=== PATIENT | male | born 1990 | race Caucasian/White ===

== ENCOUNTER 2016-07-28 03:18 | Emergency (ER) | payer OTHER ==
[~2016-07-28] VITALS: Ht 172.7 cm; Wt 64.4 kg
--- NOTE | ~2016-07-28 | EKG ---
[place] [address] [facility] [place] [address] ELECTROCARDIOGRAM REPORT Name: SOLO GUILLEN [id number] Admission: 07/28/16 Attend Phys: Discharge: 07/28/16 Date of : [birth year] Report #: [id number] THIS REPORT FOR: //name// [facility] ED Test Date: 2016-07-28 Test Time: 04:03:51 Pat Name: SOLO GUILLEN Department: Room: Gender: [employer]: CAROLYNE : 1990 Requested By: Matt Christy Order Number: [id number] MD: Yan Santa Measurements Intervals [place] Rate: 108 P: 71 GA: 157 QRS: 62 QRSD: 114 T: 28 QT: 332 QTc: 445 Interpretive Statements Sinus tachycardia Incomplete right bundle branch block No previous ECG available for comparison Electronically Signed On 07-28-2016 7:53:24 CDT by Yan Santa [email or web address] <ELECTRONICALLY SIGNED> By: Yan Santa MD, [facility] 07/28/16 [id number] Yan Santa MD, FACC /EPI
[~2016-07-28 03:18] MED LIST: ADDERALL 20 MG20 MG PO; APAP500 PO
[2016-07-28] MEDS ORDERED: ADDERALL 10 MG10 MG PO (03:23)
[2016-07-28 03:42] LABS: URINE BILIRUBIN NEGATIVE (Negative); URINE BLOOD NEGATIVE (Negative); URINE COLOR YELLOW; URINE GLUCOSE-RANDOM* NEGATIVE (Negative); URINE KETONES NEGATIVE (Negative); URINE LEUKOCYTES-REFLEX NEGATIVE (Negative); URINE PROTEIN (DIPSTICK) NEGATIVE (Negative); URINE SPECIFIC GRAVITY <= 1.005 (1.003-1.035); URINE UROBILINOGEN 0.2 E.U./dl (0.2-1.0)
[2016-07-28 03:43] LABS: ABSOLUTE NEUTROPHILS 6.1 thou/uL (1.4-8.2); BASOPHILS 0.9 % (0.0-2.0); EOSINOPHILS 1.8 % (0.0-3.0); HEMATOCRIT 48.4 % (42.0-52.0); LYMPHOCYTES 22.8 % (24.0-44.0); MCH 31.4 pg (26.0-34.0); MCHC 35.2 g/dL (28.0-37.0); MCV 89.2 fL (80.0-100.0); MONOCYTES 9.6 % (1.0-8.0); PLATELET COUNT 313 thou/uL (150-400); POLYS 64.9 % (36.0-66.0); RBC 5.42 mil/uL (4.50-6.00); RDW 12.7 % (10.5-14.5); WBC 9.3 thou/uL (4.0-11.0)
[2016-07-28 03:45] LABS: MANUAL DIFF NO
[2016-07-28 03:52] LABS: CALCIUM 9.9 mg/dL (8.5-10.1); CREATININE 0.9 mg/dL (0.6-1.3); POTASSIUM 3.6 mmol/L (3.5-5.1)
[2016-07-28 03:56] LABS: ALBUMIN 4.8 g/dL (3.4-5.0); TOTAL BILIRUBIN 0.9 mg/dL (<0.1-1.0); TOTAL PROTEIN 8.2 g/dL (6.4-8.2)
[2016-07-28] MEDS ORDERED: ZOFRAN ODT4 MG PO (06:14)
[2016-07-28] MEDS ORDERED: MIRALAX17 G1 PO (06:14)
== END 2016-07-28 06:29 | disposition home or self-care (01) ==
LOC: ER 03:18
PROVIDERS: Emergency Medicine
DX: R10.32 Left lower quadrant pain (principal); R11.2 Nausea with vomiting, unspecified; F90.9 Attention-deficit hyperactivity disorder, unspecified type; F10.99 Alcohol use, unspecified with unspecified alcohol-induced disorder

== ENCOUNTER 2019-02-09 09:51 | Emergency (ER) | payer OTHER ==
[~2019-02-09] VITALS: Ht 175.3 cm; Wt 72.6 kg
[~2019-02-09 09:51] MED LIST changes: +ADDERALL 10 MG10 MG PO; +MIRALAX17 G1 PO; +ZOFRAN ODT4 MG PO
[2019-02-09] MEDS ORDERED: CLONAZEPAM 0.50.5 M1 PO (09:55)
[2019-02-09 10:10] LABS: URINE BILIRUBIN NEGATIVE (Negative); URINE BLOOD 3+ (Negative); URINE CLARITY CLEAR; URINE COLOR YELLOW; URINE GLUCOSE-RANDOM* NEGATIVE (Negative); URINE KETONES NEGATIVE (Negative); URINE LEUKOCYTES NEGATIVE (Negative); URINE NITRITE NEGATIVE (Negative); URINE PROTEIN (DIPSTICK) TRACE (Negative); URINE SPECIFIC GRAVITY 1.015 (1.005-1.035); URINE UROBILINOGEN 0.2 E.U./dl (0.2-1.0)
[2019-02-09 10:32] LABS: ABSOLUTE NEUTROPHILS 8.5 thou/uL (1.4-8.2); BASOPHILS 0.6 % (0.0-2.0); EOSINOPHILS 1.5 % (0.0-3.0); HEMATOCRIT 46.1 % (42.0-52.0); HEMOGLOBIN 15.7 gm/dL (14.0-18.0); LYMPHOCYTES 10.5 % (24.0-44.0); MCH 31.4 pg (26.0-34.0); MCV 92.3 fL (80.0-100.0); MONOCYTES 6.6 % (1.0-8.0); POLYS 80.8 % (36.0-66.0); RDW 13.4 % (10.5-14.5); WBC 10.5 thou/uL (4.0-11.0)
[2019-02-09 10:37] LABS: BACTERIA None Seen /HPF (None Seen); CRYSTALS None Seen /LPF (None Seen); HYALINE CASTS 0-3 Few /LPF (None Seen); MUCUS 4-6 Moderate strn/LPF (None Seen); SQUAMOUS 0-3 Few /LPF (0-3); URINE RBC >20 Many /HPF (0-2); URINE WBC 0-5 Rare /HPF (0-5)
[2019-02-09 10:41] LABS: CALCIUM 9.7 mg/dL (8.5-10.1)
[2019-02-09 10:48] LABS: ALBUMIN 4.4 g/dL (3.4-5.0); TOTAL PROTEIN 7.8 g/dL (6.4-8.2)
[2019-02-09 11:01] LABS: PLATELET COUNT 282 thou/uL (150-400)
[2019-02-09] MEDS ORDERED: IBUPROFEN 600600 M1 PO (12:02)
[2019-02-09] MEDS ORDERED: NORCO 5-325 TA1 EAC1 PO (12:02)
[2019-02-09 12:13] VITALS: BP 128/83
== END 2019-02-09 12:15 | disposition home or self-care (01) ==
LOC: ER 09:51
PROVIDERS: Emergency Medicine
DX: N20.2 Calculus of kidney with calculus of ureter (principal); R10.31 Right lower quadrant pain; F90.9 Attention-deficit hyperactivity disorder, unspecified type